=== PATIENT | male | born 1960 | race American Indian/Alaskan Native ===

== ENCOUNTER 2018-06-24 00:46 | Inpatient (IN) | payer MEDICAID ==
--- NOTE | 2018-06-24 01:05 | ED PDOC ---
Arrival/HPI - General Chief Complaint: Psychiatric Evaluation Time Seen by Provider: 06/24/18 00:47 - History of Present Illness Narrative History of Present Illness (Text): 06/24/18 01:01 Matt Preez is a 58 year old male who presents to the emergency department for psychiatric admission, transferring from [facility] with complaints of bipolar disorder. Patient has been accepted by Dr. Madalyn Au for inpatient psychiatry here. Patient denies fevers, chills, headache, dizziness, chest pain, shortness of breath, dyspnea on exertion, cough, abdominal pain, nausea, vomiting, diarrhea, back pain, neck pain, or any other complaint. Time/Duration: Prior to Arrival Symptom Onset: Gradual Symptom Course: Unchanged Activities at Onset: Rest Context: Other (Outside hospital) Past Medical History - Provider Review Nursing Documentation Reviewed: Yes - Travel History Have you recently traveled outside [place] w/in the past 3 mons?: No - Psychiatric Hx Psychophysiologic Disorder: Yes Hx Anxiety: Yes Hx Bipolar Disorder: Yes Hx Depression: Yes Hx Substance Use: Yes Family/Social History - Physician Review Nursing Documentation Reviewed: Yes Family/Social History: Unknown Family HX Smoking Status: Never Smoked Hx Alcohol Use: Yes Hx Substance Use: Yes Allergies/Home Meds Allergies/Adverse Reactions: Allergies No Known Allergies Allergy (Verified 06/24/18 06:19) Home Medications: Home Meds Medication Instructions Recorded Confirmed Citalopram Hydrobromide [Celexa] 10 mg PO DAILY 06/24/18 06/24/18 Review of Systems - Physician Review All systems were reviewed & negative as marked: Yes - Review of Systems Constitutional: absent: Fevers, Night Sweats Respiratory: absent: SOB, Cough Cardiovascular: absent: Chest Pain, CARPENTER Gastrointestinal: absent: Abdominal Pain, Diarrhea, Nausea, Vomiting Musculoskeletal: absent: Back Pain, Neck Pain Neurological: absent: Headache, Dizziness Psychiatric: Other (bipolar disorder) Physical Exam Vital Signs Reviewed: Yes Vital Signs Temp Pulse Resp BP Pulse Ox 06/24/18 00:55 97.6 F 60 18 117/66 95 Temperature: Afebrile Blood Pressure: Normal Pulse: Regular Respiratory Rate: Normal Appearance: Positive for: Well-Appearing, Non-Toxic, Comfortable Pain Distress: None Mental Status: Positive for: Alert and Oriented X 3 - Systems Exam Head: Present: Atraumatic, Normocephalic Pupils: Present: PERRL Extroacular Muscles: Present: EOMI Conjunctiva: Present: Normal Respiratory/Chest: Present: Clear to Auscultation, Good Air Exchange. No: Respiratory Distress, Accessory Muscle Use, Wheezes, Rales, Rhonchi Cardiovascular: Present: Regular Rate and Rhythm, Normal S1, S2. No: Murmurs, Rub, Gallop Abdomen: Present: Normal Bowel Sounds. No: Tenderness, Distention, Peritoneal Signs Upper Extremity: Present: Normal Inspection. No: Cyanosis, Edema Lower Extremity: Present: Normal Inspection. No: Edema Neurological: Present: GCS=15, Speech Normal Skin: Present: Warm, Dry, Normal Color. No: Rashes Psychiatric: Present: Alert, Oriented x 3, Other (bipolar disorder) Medical Decision Making ED Course and Treatment: 06/24/18 01:01 Impression: 58 year old male transferred from [facility] for psychiatric admission. Plan: -- Heart Healthy Diet -- Reassess and disposition Prior Visits: Notes and results from previous visits were reviewed. - Scribe Statement The provider has reviewed the documentation as recorded by the Scribmichael Britt All medical record entries made by the Scribe were at my direction and personally dictated by me. I have reviewed the chart and agree that the record accurately reflects my personal performance of the history, physical exam, medical decision making, and the department course for this patient. I have also personally directed, reviewed, and agree with the discharge instructions and disposition. Disposition/Present on Arrival - Present on Arrival Any Indicators Present on Arrival: No History of DVT/PE: No History of Uncontrolled Diabetes: No Urinary Catheter: No History of Decub. Ulcer: No History Surgical Site Infection Following: None - Disposition Have Diagnosis and Disposition been Completed?: Yes Diagnosis: Bipolar 1 disorder Disposition: HOSPITALIZED Disposition Time: : Patient Plan: Admission Patient Problems: Current Active Problems Problem Status Onset Bipolar 1 disorder Acute Stimulant use disorder Acute Condition: STABLE
--- NOTE | 2018-06-24 06:52 | PCM.BM ---
<FidelJose O - Last Filed: 06/24/18 06:49> Treatment Plan Problems - Problems identified on initial assessmt Ineffective coping Date Initiated: 06/23/18 Time Initiated: 23:45 Assessment reference: NA Status: Active Priority: 1 Hopelessness Date Initiated: 06/23/18 Time Initiated: 23:45 Assessment reference: NA Status: Active Priority: 2 Medication Non-compliance Date Initiated: 06/23/18 Time Initiated: 23:50 Assessment reference: NA Status: Active Priority: 3 Treatment assets and liabiliti Patient Assests: adapts well, cooperative, ADL independent Patient Liabilities: substance abuse, medical problems - Milieu Protocol Maintain good personal hygiene: daily Encourage regular showers, daily Remind patient to perform daily oral care, daily Assist patient to perform ADL's Conduct patient checks and document Observation sheet: Q15 minutes Maintain personal safety: daily Educate patient to report safety concerns to staff, daily Monitor environment for contraband/sharps Medication safety: Monitor for expected outcome, potential side effects: daily, Assess barriers to learning: daily, Assess readiness for medication education: daily Family Contact Family involvement: Family/SO is involved Family contact: Patient agrees to contact Discharge/Continuing Care - Education Needs Education Needs: Patient Medication, Patient Coping Skills - Discharge Discharge Criteria: Free of Suicidal thoughts, Normal sleep pattern <Madalyn Au A - Last Filed: 06/24/18 14:40> - Diagnosis (1) Bipolar 1 disorder Status: Acute Interventions: 06/24/18 14:40 Psychoeducation Psychopharmacology/adjustment of medications as needed/ monitoring possible side effects Monitor blood level of mood stabilizers Evaluate pt on daily basis Compliance with medications and follow up appointments Suicide and homicide risk assessment and prevention, coping strategies, safety plan Relapse prevention Reduction of symptoms Improve functional status Family involvement As outpatient: cognitive behavioral therapy (2) Stimulant use disorder Status: Acute Interventions: 06/24/18 14:40 Maintaining sobriety Relapse prevention Possible rehabilitation Motivational interviewing 12-step programs: AA meetings <Charlene Bernabe Y - Last Filed: 06/26/18 16:01> Family Contact Family involvement: Famliy/SO not involved - Goals for Treatment Patient goals for treatment: "I want to go to a boarding home."
[2018-06-24 08:28] LABS: GLUCOSE,FASTING 90 mg/dL (65-110); HDL CHOLESTEROL 46 mg/dL (29-60)
[2018-06-24 08:39] LABS: LDL CHOLESTEROL 64 mg/dL (0-129)
--- NOTE | 2018-06-24 14:40 | PCM.PSYCH ---
Initial Psychiatric Evaluation - Initial Psychiatric Evaluation Type of Admission: Voluntary Legal Status: Capacity Chief Complaint (in patient's own words): "I was feeling depressed, feeling hopeless, I wanted to end up my life, I wanted to overdose on pills, that is why I came to the hospital..." Patient's Reaction to Hospitalization: Patient was admitted psychiatric inpatient unit for evaluation and stabilization of depressive symptoms, inability to function, possible suicidal ideation with a plan to overdose on pills History of Present Illness and Precipitating Events: shortly, pt is a 57 years old, single, unemployed, homeless, male with a history of bipolar disorder, noncompliant with medications and follow-up appointments, patient has history of addiction to cocaine, patient was transferred from [facility] for evaluation and stabilization of depressive symptoms, possible suicidal ideation with a plan to overdose on pills, and requires further evaluation and stabilization and medication adjustment. Patient was seen and examined today at the treatment team meeting, centered with acceptable personal hygiene, good ADLs, well related to this com writer. Patient reported that he became addicted to cocaine for past 2 years, (as per [facility] report 6years), patient reported that he would spend about $100- $200 a day for his addiction, patient reported that he was not using of cocaine daily, patient reported snorting it. Other drugs, reported smoking about 1-2 cigarettes a day, counseling provided, patient refused to have nicotine patch. Patient reported for past couple of months she was feeling depressed, hopeless, worthless, guilty, patient reported that he had suicidal ideation with a plan to overdose on pills, patient reported that he went to the pharmacy, purchased out of counter medication, "but I do not remember what medication I purchased." Patient reported that he came to the hospital looking for help because he does not want to , he wants to get better. Patient denied hearing voices, denied seeing things, denied paranoid ideations, patient does not appear to be psychotic. [facility] notes reviewed, patient reported that he became hopeless and depressed due to his homelessness because he has lost his apartment recently. Patient denied being abused. Past psychiatric history: Patient has more than 7 psychiatric admissions, jovani valle reported that he has history of one suicidal attempt 2 years ago via overdose on medications. Patient has been admitted to [facility] and [facility]. Patient is prescribed Lexapro, Trazodone and Abilify and reported being compliant with meds. Patient was last hospitalized at from 02/01/18- 02/11/18. Patient is prescribed Lexapro, Trazodone and Abilify. Patient reports med c ompliance. as per [facility] Report: 02/11/18 Cocaine: Started at 21 years of age, increase gradually. Currently he was using 2-3 bags of cocaine daily. Last use 5 days ago, smoking. Opioids: Started using heroin 5 years ago, sniffing, 3 bags daily. Last use reported 5 days ago. Alcohol: Started 20 years ago. Patient has history of incarceration for about 3 months for not paying fines. He was born in [place], has 12 grade of education, not working for last 6 years. Prescriptions/Medication Reconciliation: ARIPiprazole [Abilify] 5 mg PO QPM #30 tab Escitalopram [Lexapro] 20 mg PO DAILY #30 tab traZODone [Desyrel] 100 mg PO HS #60 tab Patient's goal for treatment is "to be accepted to a boarding home..." Family history: Patient denied family history of mental illness. Medical history: Patient reported that he is healthy Lab Results 06/24/18 07:45: TSH 3rd Generation 0.48 06/24/18 07:45: Fasting Glucose 90, Triglycerides 87, Cholesterol 140, LDL Cholesterol Direct 64, HDL Cholesterol 46 Vital Signs Temp Pulse Resp BP Pulse Ox 06/24/18 07:00 98.1 F 66 19 119/84 06/24/18 04:53 18 06/24/18 00:55 97.6 F 60 18 117/66 95 The patient failed the outpatient lower level of care: Yes Current Medications: Active Medications Generic Name Dose Route Start Last Admin Trade Name Freq PRN Reason Stop Dose Admin Citalopram Hydrobromide 10 mg 06/24/18 08:00 06/24/18 09:04 Celexa PO 10 mg DAILY NICOLASA Administration Clonazepam 1 mg 06/24/18 10:00 06/24/18 09:04 Klonopin PO 1 mg AMHS NICOLASA Administration Protocol Zaleplon 10 mg 06/24/18 01:23 06/24/18 01:42 Sonata PO 10 mg HS PRN Administration Insomnia Present on Admission - Present on Admission Any Indicators Present on Admission: No Review of Systems - Review of Systems Systems not reviewed;Unavailable: Acuity of Condition - Constitutional Constitutional: As Per HPI - EENT Eyes: As Per HPI Ears: As Per HPI Nose/Mouth/Throat: As Per HPI - Cardiovascular Cardiovascular: As Per HPI - Respiratory Respiratory: As Per HPI - Gastrointestinal Gastrointestinal: As Per HPI - Genitourinary Genitourinary: As Per HPI - Reproductive: Male Reproductive:Male: As Per HPI - Musculoskeletal Musculoskeletal: As Per HPI - Integumentary Integumentary: As Per HPI - Neurological Neurological: As Per HPI - Psychiatric Psychiatric: As Per HPI - Endocrine Endocrine: As Per HPI - Hematologic/Lymphatic Hematologic: As Per HPI Past Patient History - Past Psychiatric History Previous Treatment History: Inpatient Prior Professional Help: See HPI Prior Psychiatric Treatment: See HPI At what hospital: See HPI Duration: See HPI Nature of Treatment: See HPI Explanation of prior treatment: See HPI - PSYCHIATRIC Hx Bipolar Disorder: Yes Hx Depression: Yes Hx Substance Use: Yes - SURGICAL HISTORY Hx Surgeries: No - Medical/Surgical History Reviewed & confirmed: by ar Meds Allergies/Adverse Reactions: Allergies Allergy/AdvReac Type Severity Reaction Status Date / Time No Known Allergies Allergy Verified 06/24/18 06:19 Mental Status Examination - Personal Presentation Personal Presentation: Looks stated age - Affect Affect: Flat - Motor Activity Motor Activity: Calm - Reliability in Providing Information Reliability in Providing Information: Fair - Speech Speech: Organized - Mood Mood: Depressed - Formal Thought Process Formal Thought Process: No Impairment - Obsessions/Compulsions Obsessions: None Compulsions: None - Cognitive Functions Orientation: Person, Place, Situation, Time Sensorium: Alert Attention/Concentration: Easily distracted Judgement: Intact, as evidence by: Insight regarding need for hospitalization - Risk Risk: Diminished functioning - Strength & Assets Inventory Strength & Assets Inventory: Cooperative, Other (Good physical health no psychosis) - Limitations Limitations: Other (Substance abuse poor social support) Psychiatric Physical Exam - Physical Exam Reviewed and confirmed: Emergency Department Physical Exam Results - Vital Signs Recent Vital Signs: Last Vital Signs Temp 98.1 F 06/24/18 07:00 Pulse 66 06/24/18 07:00 Resp 19 06/24/18 07:00 BP 119/84 06/24/18 07:00 Pulse Ox 95 06/24/18 00:55 - Labs Labs: Laboratory Results - last 24 hr 06/24/18 06/24/18 07:45 07:45 Fasting Glucose 90 Triglycerides 87 Cholesterol 140 LDL Cholesterol Direct 64 HDL Cholesterol 46 TSH 3rd Generation 0.48 - EKG Data EKG Interpreted by: ER Physician DSM Plan - DSM 5 DSM 5 Diagnosis: History of bipolar disorder, most recent episode depressed, severe, no psychosis Stimulant use disorder Rule out substance-induced mood disorder - Recommended/Plan of Treatment Treatment Recommendations and Plan of Treatment: Milieu/structure/supportive therapy SW consultation for discharge plan and social issues Med management: All medications resumed Family involvement Follow up on labs Will monitor closely Pt was educated about risk/benefits and alternatives of medications, coping strategies (safety plan, suicide prevention), relapse prevention, importance of follow up with psychiatrist and therapist, stay away from drugs/alcohol/smoking Projected ELOS: 7 days Prognosis: Fair Discharge Plan and Discharge Criteria: Pt will be not depressed or manic, will be more hopeful, will be not psychotic or anxious, will be tolerating medications well, will not have major side effects, will be able to function, will not pose threat to self or others. - Tobacco Cessation Tobacco Use Status for the last 30 days: Light User(<=4 cigs daily, cigar/pipes not daily,or smokeless tobacco) Tobacco Use Treatment Practical Counseling Provided: Yes Tobacco Use Treatment FDA-Approved Cessation Medication Provided: No Reason for not providing: Patient refused tobacco cessation medication - Alcohol or Substance Abuse Does the patient have an Alcohol or Substance Abuse Disorder: Yes Initial Psych Certification - Initial Certification I certify that the inpatient psychiatric facility admission was medically necessary for either: Treatment which could reasonbly be expected to improve pt's condition I estimate of hospitalization is necessary for proper treatment of the patient: 7 Unit of Time: Days My plans for post-hospital care for this patient are: [facility] program, dual diagnosis program, day treatment program, intensive outpatient program, possible inpatient rehab
[2018-06-25 07:04] VITALS: O2SAT 98
--- NOTE | 2018-06-25 16:23 | PCM.PYCHPN ---
Psychiatric Progress Note - Psychiatric Progress Note Patient seen today, length of contact: 30 minutes Patient Chief Complaint: "I I am feeling little better" Problems Identified/Issues Discussed: Suicide/ homicide prevention, past psychiatric h/o, current psychiatric sympt oms, medical problems, risk/benefits and alternatives of medications, medications compliance, coping strategies, substance abuse h/o, relapse prevention, importance of follow up with psychiatrist and therapist, discharge plan. Medical Problems: See HPI Diagnostic Results: Lab Results 06/24/18 07:45: RPR Nonreactive 06/24/18 07:45: TSH 3rd Generation 0.48 06/24/18 07:45: Fasting Glucose 90, Triglycerides 87, Cholesterol 140, LDL Cholesterol Direct 64, HDL Cholesterol 46 Vital Signs Temp Pulse Resp BP Pulse Ox 06/25/18 07:00 97.3 F L 56 L 20 91/54 L 98 06/24/18 16:12 98 F 62 18 108/72 06/24/18 07:00 98.1 F 66 19 119/84 06/24/18 04:53 18 06/24/18 00:55 97.6 F 60 18 117/66 95 DSM 5 Symptoms Update: shortly, pt is a 57 years old, single, unemployed, homeless, male with a history of bipolar disorder, noncompliant with medications and follow-up appointments, patient has history of addiction to cocaine, patient was transferred from [facility] for evaluation and stabilization of depressive symptoms, possible suicidal ideation with a plan to overdose on pills, and requires further evaluation and stabilization and medication adjustment. Patient was seen and examined today next to the nursing station, patient reported being not well, but acknowledged that he feels little better. Patient has transient symptoms of hopelessness, depression, hopelessness. Patient reported that he had sleepless night, denied hallucinations, reported to have fair appetite. As per collateral information from nursing staff, patient does not have any major behavioral issues, compliant with her medications, no aggression, no agitation. So far patient tolerates medications well, no side effects observed or reported, aims 0, no EPS. Impression: DSM 5 Diagnosis: History of bipolar disorder, most recent episode depressed, severe, no psychosis Stimulant use disorder Rule out substance-induced mood disorder Medication Change: Yes (Klonopin as needed) Medical Record Reviewed: Yes Consults ordered or reviewed: Patient was seen by medical team in the emergency room, patient does not have any major medical issues. Mental Status Examination - Cognitive Function Orientation: Person, Place, Situation, Time Memory: Intact Attention: Poor Concentration: Poor Association: WNL Fund of Knowledge: WNL - Mood Mood: Depressed - Affect Affect: Flat - Formal Thought Process Formal Thought Process: No Impairment - Suicidal Ideation Suicidal Ideation: No - Homicidal Ideation Homicidal Ideation: No Goal/Treatment Plan - Goal/Treatment Plan Need for Continued Stay: Remain at risks for inpatient hospitalization, Severe depression anxiety, Discharge may exacerbated symptoms, Severe functional impairment Progress Toward Problem(s) and Goals/Treatment Plan: Milieu/structure/supportive therapy SW consultation for discharge plan and social issues Med management: All medications resumed Klonopin as needed for anxiety Lexapro for depression and anxiety Abilify 5 mg daily for psychosis and mood stabilization Family involvement Follow up on labs Will monitor closely Pt was educated about risk/benefits and alternatives of medications, coping strategies (safety plan, suicide prevention), relapse prevention, importance of follow up with psychiatrist and therapist, stay away from drugs/alcohol/smoking Estimated Date of D/C: 07/01/18
--- NOTE | 2018-06-26 14:42 | PCM.PYCHPN ---
Psychiatric Progress Note - Psychiatric Progress Note Patient seen today, length of contact: 30 minutes Patient Chief Complaint: "my mood is very bad, I don't feel good..." Problems Identified/Issues Discussed: Suicide/ homicide prevention, past psychiatric h/o, current psychiatric symptoms, medical problems, risk/benefits and alternatives of medications, medications compliance, coping strategies, substance abuse h/o, relapse prevention, importance of follow up with psychiatrist and therapist, discharge plan. Medical Problems: See HPI Diagnostic Results: Lab Results 06/24/18 07:45: RPR Nonreactive 06/24/18 07:45: TSH 3rd Generation 0.48 06/24/18 07:45: Fasting Glucose 90, Triglycerides 87, Cholesterol 140, LDL Cholesterol Direct 64, HDL Cholesterol 46 Vital Signs Temp Pulse Resp BP Pulse Ox 06/25/18 07:00 97.3 F L 56 L 20 91/54 L 98 06/24/18 16:12 98 F 62 18 108/72 06/24/18 07:00 98.1 F 66 19 119/84 06/24/18 04:53 18 06/24/18 00:55 97.6 F 60 18 117/66 95 DSM 5 Symptoms Update: shortly, pt is a 57 years old, single, unemployed, homeless, male with a history of bipolar disorder, noncompliant with medications and follow-up appointments, patient has history of addiction to cocaine, patient was transferred from [facility] for evaluation and stabilization of depressive symptoms, possible suicidal ideation with a plan to overdose on pills, and requires further evaluation and stabilization and medication adjustment. Patient was seen and examined today in his room, patient reported being not well, "my mood is not good at all, I was not able to sleep, I am still depressed.." Patient has transient symptoms of hopelessness, depression, hopelessness. Patient reported that he had sleepless night, denied hallucinations, reported to have fair appetite. As per collateral information from nursing staff, patient does not have any major behavioral issues, compliant with her medications, no aggression, no agitation. So far patient tolerates medications well, no side effects observed or reported, aims 0, no EPS. Impression: DSM 5 Diagnosis: History of bipolar disorder, most recent episode depressed, severe, no psychosis Stimulant use disorder Rule out substance-induced mood disorder Medication Change: Yes (abilify increased, trazodone increased) Medical Record Reviewed: Yes Consults ordered or reviewed: Patient was seen by medical team in the emergency room, patient does not have any major medical issues. Mental Status Examination - Cognitive Function Orientation: Person, Place, Situation, Time Memory: Intact Attention: Poor Concentration: Poor Association: WNL Fund of Knowledge: WNL - Mood Mood: Depressed - Affect Affect: Flat - Formal Thought Process Formal Thought Process: No Impairment - Suicidal Ideation Suicidal Ideation: No - Homicidal Ideation Homicidal Ideation: No Goal/Treatment Plan - Goal/Treatment Plan Need for Continued Stay: Remain at risks for inpatient hospitalization, Severe depression anxiety, Discharge may exacerbated symptoms, Severe functional impairment Progress Toward Problem(s) and Goals/Treatment Plan: Milieu/structure/supportive therapy SW consultation for discharge plan and social issues Med management: All medications resumed Klonopin as needed for anxiety Lexapro 20mg daily for depression and anxiety Abilify 5 mg po bid for psychosis and mood stabilization trazodone 200mg po hs for depression/insomnia Family involvement Follow up on labs Will monitor closely Pt was educated about risk/benefits and alternatives of medications, coping strategies (safety plan, suicide prevention), relapse prevention, importance of follow up with psychiatrist and therapist, stay away from drugs/alcohol/smoking Estimated Date of D/C: 07/01/18
[2018-06-27] MEDS ORDERED: Petrolatum Oint Foilpak (5 gm) TOP PRN (13:27)
--- NOTE | 2018-06-27 16:09 | PCM.PYCHPN ---
Psychiatric Progress Note - Psychiatric Progress Note Patient seen today, length of contact: 30 minutes Patient Chief Complaint: "I feel anxious about my interview with [facility]" Problems Identified/Issues Discussed: Suicide/ homicide prevention, past psychiatric h/o, current psychiatric symptoms, medical problems, risk/benefits and alternatives of medications, medications compliance, coping strategies, substance abuse h/o, relapse prevention, importance of follow up with psychiatrist and therapist, discharge plan. Medical Problems: See HPI Diagnostic Results: Lab Results 06/24/18 07:45: RPR Nonreactive 06/24/18 07:45: TSH 3rd Generation 0.48 06/24/18 07:45: Fasting Glucose 90, Triglycerides 87, Cholesterol 140, LDL Cholesterol Direct 64, HDL Cholesterol 46 Vital Signs Temp Pulse Resp BP Pulse Ox 06/25/18 07:00 97.3 F L 56 L 20 91/54 L 98 06/24/18 16:12 98 F 62 18 108/72 06/24/18 07:00 98.1 F 66 19 119/84 06/24/18 04:53 18 06/24/18 00:55 97.6 F 60 18 117/66 95 DSM 5 Symptoms Update: shortly, pt is a 57 years old, single, unemployed, homeless, male with a history of bipolar disorder, noncompliant with medications and follow-up appointments, patient has history of addiction to cocaine, patient was transferred from [facility] for evaluation and stabilization of depressive symptoms, possible suicidal ideation with a plan to overdose on pills, and requires further evaluation and stabilization and medication adjustment. Patient was seen and examined today next to the nursing station, patient will be interviewed by Mr. Nichols from "[facility]", patient reported being anxious, patient has transient symptoms of hopelessness, depression, hopelessness. Patient reported that he had sleepless night, denied hallucinations, reported to have fair appetite. As per collateral information from nursing staff, patient does not have any major behavioral issues, compliant with her medications, no aggression, no agitation. So far patient tolerates medications well, no side effects observed or reported, aims 0, no EPS. Impression: DSM 5 Diagnosis: History of bipolar disorder, most recent episode depressed, severe, no psychosis Stimulant use disorder Rule out substance-induced mood disorder Medication Change: Yes (abilify increased, trazodone increased) Medical Record Reviewed: Yes Consults ordered or reviewed: Patient was seen by medical team in the emergency room, patient does not have any major medical issues. Mental Status Examination - Cognitive Function Orientation: Person, Place, Situation, Time Memory: Intact Attention: Poor (Somewhat better) Concentration: Poor (Some improvement) Association: WNL Fund of Knowledge: WNL - Mood Mood: Depressed ("I feel very anxious today") - Affect Affect: Flat - Formal Thought Process Formal Thought Process: No Impairment - Suicidal Ideation Suicidal Ideation: No - Homicidal Ideation Homicidal Ideation: No Goal/Treatment Plan - Goal/Treatment Plan Need for Continued Stay: Remain at risks for inpatient hospitalization, Severe depression anxiety, Discharge may exacerbated symptoms, Severe functional impairment Progress Toward Problem(s) and Goals/Treatment Plan: Milieu/structure/supportive therapy SW consultation for discharge plan and social issues Med management: All medications resumed Klonopin as needed for anxiety Lexapro 20mg daily for depression and anxiety Abilify 5 mg po bid for psychosis and mood stabilization trazodone 200mg po hs for depression/insomnia Family involvement Follow up on labs Will monitor closely Pt was educated about risk/benefits and alternatives of medications, coping strategies (safety plan, suicide prevention), relapse prevention, importance of follow up with psychiatrist and therapist, stay away from drugs/alcohol/smoking Interview for boarding home placement 06/27/2018 Estimated Date of D/C: 07/01/18
[2018-06-28 07:14] VITALS: RESP 18
--- NOTE | 2018-06-28 09:19 | PCM.PYCHPN ---
Psychiatric Progress Note - Psychiatric Progress Note Patient seen today, length of contact: 30 minutes Problems Identified/Issues Discussed: I reviewed recent notes and patient was interviewed in the dayroom. He is calm, superficially cooperative and friendly. Oriented x3. He is a little oddly related. He continues to report improvement in mood and emotional control since admission. He is tolerating his medications and denies any new side effects, discomfort or pain. Patient still gets bouts of anxiety and hopelessness but these are less intense than before. Thought process is coherent and he denies perceptual disturbance. Appetite and sleep are improving a little. There have been no major behavioral issues thus far. Diagnostic Results: History of bipolar disorder, most recent episode depressed, severe, no psychosis Stimulant use disorder Rule out substance-induced mood disorder Medication Change: No ( ) Medical Record Reviewed: Yes Mental Status Examination - Cognitive Function Orientation: Person, Place, Situation, Time Memory: Intact Attention: WNL (Somewhat better) Concentration: WNL (Some improvement) Association: WNL Fund of Knowledge: WNL - Mood Mood: Depressed (better) - Affect Affect: Flat - Speech Speech: Appropriate - Formal Thought Process Formal Thought Process: No Impairment - Suicidal Ideation Suicidal Ideation: No - Homicidal Ideation Homicidal Ideation: No Goal/Treatment Plan - Goal/Treatment Plan Need for Continued Stay: Remain at risks for inpatient hospitalization, Severe depression anxiety, Discharge may exacerbated symptoms, Severe functional impairment Progress Toward Problem(s) and Goals/Treatment Plan: * c/w current treatment and plan * No new lab results noted thus far * Vitals reviewed and noted below: Selected Entries 06/29/18 07:00 Temperature 97.8 F Pulse Rate 58 L Respiratory 18 Rate Blood Pressure 109/73 Estimated Date of D/C: 07/01/18
--- NOTE | 2018-06-29 09:30 | PCM.PYCHPN ---
Psychiatric Progress Note - Psychiatric Progress Note Patient seen today, length of contact: 30 minutes Problems Identified/Issues Discussed: I reviewed recent notes and patient was interviewed in the dayroom again. He is calm, superficially cooperative and friendly. Oriented x3. He is a little oddly related and affect remains constricted/blunt. He continues to report improvement in mood and emotional control since admission. He is tolerating his medications and denies any new side effects, discomfort or pain. Patient still gets bouts of anxiety and hopelessness but these are less intense than before. Thought process is coherent and he denies perceptual disturbance. Appetite and sleep are improving and patient reports that he slept well last night. There have been no major behavioral issues thus far. Diagnostic Results: History of bipolar disorder, most recent episode depressed, severe, no psychosis Stimulant use disorder Rule out substance-induced mood disorder Medication Change: No ( ) Medical Record Reviewed: Yes Mental Status Examination - Cognitive Function Orientation: Person, Place, Situation, Time Memory: Intact Attention: WNL (Somewhat better) Concentration: WNL (Some improvement) Association: WNL Fund of Knowledge: WNL - Mood Mood: Depressed (better) - Affect Affect: Flat - Speech Speech: Appropriate - Formal Thought Process Formal Thought Process: No Impairment - Suicidal Ideation Suicidal Ideation: No - Homicidal Ideation Homicidal Ideation: No Goal/Treatment Plan - Goal/Treatment Plan Need for Continued Stay: Remain at risks for inpatient hospitalization, Severe depression anxiety, Discharge may exacerbated symptoms, Severe functional impairment Progress Toward Problem(s) and Goals/Treatment Plan: * c/w current treatment and plan * No new lab results noted thus far * Vitals reviewed and noted below: Selected Entries 06/29/18 07:00 Temperature 97.8 F Pulse Rate 58 L Respiratory 18 Rate Blood Pressure 109/73 Estimated Date of D/C: 07/01/18
--- NOTE | 2018-06-30 10:05 | PCM.PYCHPN ---
Psychiatric Progress Note - Psychiatric Progress Note Patient seen today, length of contact: 30 minutes Problems Identified/Issues Discussed: I reviewed recent notes and patient was interviewed in the hallway. He is well- groomed, calm, superficially cooperative and friendly. Oriented x3. He remains a little oddly related but not bizarre. He continues to report improvement in mood and emotional control since admission. He is tolerating his medications and denies any new side effects, discomfort or pain. Patient still gets bouts of anxiety and hopelessness but these are less intense than before. Thought process is coherent and he denies perceptual disturbance. Appetite and sleep are impro ving a little. There have been no major behavioral issues thus far. Diagnostic Results: History of bipolar disorder, most recent episode depressed, severe, no psychosis Stimulant use disorder Rule out substance-induced mood disorder Medication Change: No ( ) Medical Record Reviewed: Yes Mental Status Examination - Cognitive Function Orientation: Person, Place, Situation, Time Memory: Intact Attention: WNL (Somewhat better) Concentration: WNL (Some improvement) Association: WNL Fund of Knowledge: WNL - Mood Mood: Depressed (better) - Affect Affect: Flat - Speech Speech: Appropriate - Formal Thought Process Formal Thought Process: No Impairment - Suicidal Ideation Suicidal Ideation: No - Homicidal Ideation Homicidal Ideation: No Goal/Treatment Plan - Goal/Treatment Plan Need for Continued Stay: Remain at risks for inpatient hospitalization, Severe depression anxiety, Discharge may exacerbated symptoms, Severe functional impairment Progress Toward Problem(s) and Goals/Treatment Plan: * c/w current treatment and plan * No new weekend lab results noted thus far * Vitals reviewed and noted below: Selected Entries 06/30/18 08:02 Temperature 97.3 F L Pulse Rate 79 Respiratory 18 Rate Blood Pressure 122/77 Estimated Date of D/C: 07/01/18
--- NOTE | 2018-07-01 15:50 | PCM.PYCHPN ---
Psychiatric Progress Note - Psychiatric Progress Note Patient seen today, length of contact: 30 minutes Patient Chief Complaint: "I feel better..." Problems Identified/Issues Discussed: Suicide/ homicide prevention, past psychiatric h/o, current psychiatric symptoms, medical problems, risk/benefits and alternatives of medications, medications compliance, coping strategies, substance abuse h/o, relapse prevention, importance of follow up with psychiatrist and therapist, discharge plan. Medical Problems: See HPI Diagnostic Results: Lab Results 06/24/18 07:45: RPR Nonreactive 06/24/18 07:45: TSH 3rd Generation 0.48 06/24/18 07:45: Fasting Glucose 90, Triglycerides 87, Cholesterol 140, LDL Cholesterol Direct 64, HDL Cholesterol 46 Vital Signs Temp Pulse Resp BP Pulse Ox 06/25/18 07:00 97.3 F L 56 L 20 91/54 L 98 06/24/18 16:12 98 F 62 18 108/72 06/24/18 07:00 98.1 F 66 19 119/84 06/24/18 04:53 18 06/24/18 00:55 97.6 F 60 18 117/66 95 DSM 5 Symptoms Update: shortly, pt is a 57 years old, single, unemployed, homeless, male with a history of bipolar disorder, noncompliant with medications and follow-up appointments, patient has history of addiction to cocaine, patient was transferred from [facility] for evaluation and stabilization of depressive symptoms, possible suicidal ideation with a plan to overdose on pills, and requires further evaluation and stabilization and medication adjustment. Patient was seen and examined today at the treatment team meeting, patient presented with good personal hygiene, patient reported that he feels better, denied feeling of hopelessness, denied any psychotic symptoms, patient reported that his sleep and appetite are fair. Last week, patient was not seen by Mr. Nichols from "[facility]", today from [facility] will interview patient. In case patient will be not accepted, patient will be discharged to his brother's house tomorrow July 02. As per collateral information from nursing staff, patient does not have any major behavioral issues, compliant with her medications, no aggression, no agitation. So far patient tolerates medications well, no side effects observed or reported, aims 0, no EPS. Impression: DSM 5 Diagnosis: History of bipolar disorder, most recent episode depressed, severe, no psychosis Stimulant use disorder Rule out substance-induced mood disorder Medication Change: No ( ) Medical Record Reviewed: Yes Mental Status Examination - Cognitive Function Orientation: Person, Place, Situation, Time Memory: Intact Attention: WNL (Somewhat better) Concentration: WNL (Some improvement) Association: WNL Fund of Knowledge: WNL - Mood Mood: Depressed (better) - Affect Affect: Flat - Speech Speech: Appropriate - Formal Thought Process Formal Thought Process: No Impairment - Suicidal Ideation Suicidal Ideation: No - Homicidal Ideation Homicidal Ideation: No Goal/Treatment Plan - Goal/Treatment Plan Need for Continued Stay: Remain at risks for inpatient hospitalization, Severe depression anxiety, Discharge may exacerbated symptoms, Severe functional impairment Progress Toward Problem(s) and Goals/Treatment Plan: Milieu/structure/supportive therapy SW consultation for discharge plan and social issues Med management: All medications resumed Klonopin as needed for anxiety Lexapro 20mg daily for depression and anxiety Abilify 5 mg po bid for psychosis and mood stabilization trazodone 200mg po hs for depression/insomnia Family involvement Follow up on labs Will monitor closely Pt was educated about risk/benefits and alternatives of medications, coping strategies (safety plan, suicide prevention), relapse prevention, importance of follow up with psychiatrist and therapist, stay away from drugs/alcohol/smoking Interview for boarding home placement 07/01/18 Estimated Date of D/C: 07/02/18
--- NOTE | 2018-07-01 16:44 | PCM.BM ---
<RemiMasha - Last Filed: 07/01/18 16:41> Treatment Plan Problems - Problems identified on initial assessmt Ineffective coping Date Initiated: 06/23/18 (07/01 AWARE OF HIS D/C IN AM,IF NOT ACCEPTED FOR BOARDING HOME HE WILL STAY WITH HIS BROTHER) Time Initiated: 23:45 Assessment reference: NA Status: Active Priority: 1 Hopelessness Date Initiated: 06/23/18 Time Initiated: 23:45 Date resolved: 07/01/18 Assessment reference: NA Status: Active Priority: 2 Medication Non-compliance Date Initiated: 06/23/18 Time Initiated: 23:50 Date resolved: 07/01/18 Assessment reference: NA Status: Active Priority: 3 Treatment assets and liabiliti Patient Assests: adapts well, cooperative, ADL independent Patient Liabilities: substance abuse, medical problems - Milieu Protocol Maintain good personal hygiene: daily Encourage regular showers, daily Remind patient to perform daily oral care, daily Assist patient to perform ADL's Conduct patient checks and document Observation sheet: Q15 minutes Maintain personal safety: daily Educate patient to report safety concerns to staff, daily Monitor environment for contraband/sharps Medication safety: Monitor for expected outcome, potential side effects: daily, Assess barriers to learning: daily, Assess readiness for medication education: d sukhdeep Milieu Narrative: Milieu/structure/supportive therapy consultation for discharge plan and social issues Med management: All medications resumed Klonopin as needed for anxiety Lexapro 20mg daily for depression and anxiety Abilify 5 mg po bid for psychosis and mood stabilization trazodone 200mg po hs for depression/insomnia Family involvement Follow up on labs Will monitor closely Pt was educated about risk/benefits and alternatives of medications, coping strategies (safety plan, suicide prevention), relapse prevention, importance of follow up with psychiatrist and therapist, stay away from drugs/alcohol/smoking Interview for boarding home placement 07/01/18 Family Contact Family involvement: Famliy/SO not involved - Goals for Treatment Patient goals for treatment: "I want to go to a boarding home." Discharge/Continuing Care - Education Needs Education Needs: Patient Medication, Patient Coping Skills - Discharge Discharge Criteria: Free of Suicidal thoughts, Normal sleep pattern - Treatment Team Participation Patient/Family/SO Statement: Milieu/structure/supportive therapy consultation for discharge plan and social issues Med management: All medications resumed Klonopin as needed for anxiety Lexapro 20mg daily for depression and anxiety Abilify 5 mg po bid for psychosis and mood stabilization trazodone 200mg po hs for depression/insomnia Family involvement Follow up on labs Will monitor closely Pt was educated about risk/benefits and alternatives of medications, coping strategies (safety plan, suicide prevention), relapse prevention, importance of follow up with psychiatrist and therapist, stay away from drugs/alcohol/smoking Interview for boarding home placement 07/01/18 Treatment Plan Review - Problem Ineffective coping Time Initiated: 23:45 Hopelessness Time Initiated: 23:45 Medication Non-compliance Time Initiated: 23:50 <Charlene Bernabe - Last Filed: 07/02/18 12:02> Family Contact Family involvement: Family/SO is involved Family contact: Patient agrees to contact Family contact name: Raghav Sanabria(brother) Family contacted how many times per week?: 2 <Madalyn Au - Last Filed: 07/03/18 09:29> - Diagnosis (1) Bipolar 1 disorder Status: Acute Interventions: Patient denied being depressed Patient denied any thoughts of harming himself or others Patient has future oriented plans Patient tolerates medications well no side effects observed or reported pt improved significantly (2) Stimulant use disorder Status: Acute Interventions: 07/03/18 09:28 Patient is willing to go to AA meetings and NA meetings Patient wants to keep his sobriety Patient expressed no interest to go to inpatient rehab.
[2018-07-02 07:41] VITALS: BP 121/82; PULSE 54; TEMP 97.3
--- NOTE | 2018-07-03 09:38 | PCM.PYCHDC ---
Mental Status Examination - Mental Status Examination Orientation: Person, Place, Situation, Time Memory: Intact Mood: Neutral Affect: Constricted (But more reactive, mood congruent) Speech: Appropriate Attention: WNL Concentration: WNL Association: WNL Fund of Knowledge: Poor (Baseline) Formal Thought Process: No Impairment Description of patient's judgement and insight: Pt has improved insight into mental and medical illness, pt was compliant with medications and unit rules and regulations, pt was attending therapy groups, was calm, cooperative, socially appropriate, no behavioral incidents, no agitation, no aggression. Psychotic Thoughts and Behaviors: Pt denied v/a/t hallucinations, denied paranoid ideations, pt does not appear to be psychotic, and thought process is goal directed. Suicidal Ideation: No Current Homicidal Ideation?: No Plan: pt adamantly denied thoughts of harming self or others denied intent or plan. Discharge Summary - Discharge Note Reason for Hospitalization: Patient was admitted psychiatric inpatient unit for evaluation and stabilization of depressive symptoms, inability to function, possible suicidal ideation with a plan to overdose on pills Psychiatric History (includes Medical, Family, Personal Hx): See HPI Laboratory Data: Lab Results 06/24/18 07:45: RPR Nonreactive 06/24/18 07:45: TSH 3rd Generation 0.48 06/24/18 07:45: Fasting Glucose 90, Triglycerides 87, Cholesterol 140, LDL Cholesterol Direct 64, HDL Cholesterol 46 Vital Signs Temp Pulse Resp BP Pulse Ox 07/02/18 07:00 97.3 F L 54 L 18 121/82 07/01/18 16:00 57 L 120/73 07/01/18 06:36 98.6 F 90 18 120/73 06/30/18 16:49 64 119/73 06/30/18 08:02 97.3 F L 79 18 122/77 06/29/18 16:47 58 L 127/84 06/29/18 07:00 97.8 F 58 L 18 109/73 06/28/18 16:22 58 L 117/71 06/28/18 07:00 97.8 F 67 18 128/83 06/27/18 16:30 76 138/79 06/27/18 06:49 97.6 F 60 20 108/66 06/26/18 16:00 61 100/63 06/26/18 07:00 98.2 F 52 L 18 101/79 06/25/18 16:00 64 95/58 L 06/25/18 07:00 97.3 F L 56 L 20 91/54 L 98 06/24/18 16:12 98 F 62 18 108/72 06/24/18 07:00 98.1 F 66 19 119/84 06/24/18 04:53 18 06/24/18 00:55 97.6 F 60 18 117/66 95 Consultations:: List each consultation separately and include: 1. Reason for request. 2. Findings. 3. Follow-up Consultations: Patient was seen by medical team in the emergency room, patient does not have any major medical issues. Summary of Hospital Course include:: 1. Description of specific treatment plan utilized for patients during their course of treatmen. 2. Summarize the time- course for resolution of acute symptoms and/or regressed behaviors. 3. Describe issues identified and worked on during hospitalization. 4. Describe medication utilized. 5. Describe medical problems identified and treated. 6. Reassessment of suicide risk Summary of Hospital Course: shortly, pt is a 57 years old, single, unemployed, homeless, male with a history of bipolar disorder, noncompliant with medications and follow-up appointments, patient has history of addiction to cocaine, patient was transferred from [facility] for evaluation and stabilization of depressive symptoms, possible suicidal ideation with a plan to overdose on pills, and requires further evaluation and stabilization and medication adjustment. Please see admission note for more detailed information. Patient was stabilized on the following medications: Lab Results 06/24/18 07:45: TSH 3rd Generation 0.48 06/24/18 07:45: Fasting Glucose 90, Triglycerides 87, Cholesterol 140, LDL Cholesterol Direct 64, HDL Cholesterol 46 Vital Signs Temp Pulse Resp BP Pulse Ox 06/24/18 07:00 98.1 F 66 19 119/84 06/24/18 04:53 18 06/24/18 00:55 97.6 F 60 18 117/66 95 Abilify 5 mg twice a day for mood stabilization and psychotic symptoms Klonopin 0.5 mg 3 times a day as needed for anxiety Lexapro 20 mg daily for depression and anxiety Trazodone 200 mg at the nighttime for depression and insomnia Sonata 10 mg at the nighttime as needed for insomnia Patient tolerated medications well, no side effects observed or reported, aims 0, no EPS. Over the course of this hospitalization pt was attending groups, pt also had medication management, had therapeutic milieu. Overall pt improved significantly, pt's affect became brighter, pt was less depressed, has realistic future oriented plans, pt also does not appear to be psychotic, or anxious, pt was socially appropriate, no behavioral issues, pts insight improved as well and soon pt deemed to be ready for discharge. At the time of the discharge patient pose no imminent danger to self or others, will be following up at [place] [facility], information about follow up appointment, time and address provided to the pt, (see note for more detailed information). It is a patient responsibility to follow up with outpatient clinic, PMD as well as specialists In case patient will need to obtain results of studies pending at discharge, patient was provided with contact information of Psychiatric Inpatient unit [phone] as well as Medical Record Department [phone], as well as [facility] team [phone]. Naltrexone treatment is not indicated at this time, cocaine use is not indication for naltrexone tx Counseling about drug cessation provided AA meetings treatment program information was provided by the pt was provided with prescriptions (see medication reconciliation form) Pt was educated about safety plan in case of worsening of symptoms or in case of suicidal or homicidal ideation call 911 or go to the nearest ER, also was educated to take meds as prescribed and stay away from drugs, pt verbalized understanding. - Diagnosis (1) Bipolar 1 disorder Status: Chronic Priority: High (2) Stimulant use disorder Status: Chronic Priority: High - Final Diagnosis (DSM 5) Condition upon Discharge: STABLE Disposition: HOME/ ROUTINE Follow-up Treatment Plan: At the time of the discharge patient pose no imminent danger to self or others, will be following up at [facility], information about follow up appointment, time and address provided to the pt, (see SW note for more detailed information). It is a patient responsibility to follow up with outpatient clinic, PMD as well as specialists In case patient will need to obtain results of studies pending at discharge, patient was provided with contact information of Psychiatric Inpatient unit [phone] as well as Medical Record Department [phone], as well as [facility] team [phone]. Naltrexone treatment is not indicated at this time, cocaine use is not indication for naltrexone tx Counseling about drug cessation provided AA meetings treatment program information was provided by the [facility] pt was provided with prescriptions (see medication reconciliation form) Pt was educated about safety plan in case of worsening of symptoms or in case of suicidal or homicidal ideation call 911 or go to the nearest ER, also was educated to take meds as prescribed and stay away from drugs, pt verbalized understanding. Patient was seen by 2 [facility], patient changed his mind, wants to be d/c to his brother's house Prescriptions/Medication Reconciliation: ARIPiprazole [Abilify] 5 mg PO BID #30 tab Clonazepam [Klonopin] 0.5 mg PO TID #12 tablet Escitalopram [Lexapro] 20 mg PO DAILY #14 tab traZODone [Desyrel] 200 mg PO HS #30 tab - Smoking Cessation Smoking Cessation Medication prescribed: No Reason for not providing: Patient refused - Antipsychotic Medications Pt discharged on 2 or more routine antipsychotic medications: No
== END 2018-07-02 13:04 | disposition home or self-care (01) | DRG 430 ==
LOC: ED 00:46 → ERH 01:01 → PSYC 01:24
PROVIDERS: ADMIT Psychiatry & Neurology Psychiatry; ATTEND Psychiatry & Neurology Psychiatry
DX: F31.4 Bipolar disorder, current episode depressed, severe, without psychotic features (principal); F14.20 Cocaine dependence, uncomplicated; F15.10 Other stimulant abuse, uncomplicated; R45.851 Suicidal ideations; F17.210 Nicotine dependence, cigarettes, uncomplicated; F29 Unspecified psychosis not due to a substance or known physiological condition; F41.9 Anxiety disorder, unspecified; G47.00 Insomnia, unspecified; Z79.899 Other long term (current) drug therapy; Z91.14 Patient's other noncompliance with medication regimen; Z56.0 Unemployment, unspecified; Z59.0 Homelessness